=== PATIENT | male | born 1950 | race Caucasian/White ===

== ENCOUNTER 2019-04-11 14:13 | Inpatient (IN) | payer MEDICARE ==
[2019-04-11] MEDS ORDERED: Heparin for STEMI(*) 5,000 UNITS/ML 1 ML VIAL IV ONE ×2 (14:20)
[2019-04-11] MEDS ORDERED: Morphine INJ* 10 MG/ML 1 ML CARPUJECT IV ONE (14:20)
[2019-04-11] MEDS ORDERED: Aspirin 81 mg CHEW TAB* 81 MG TAB.CHEW ONE (14:20)
[2019-04-11] MEDS ORDERED: Ticagrelor* 90 MG TAB PO ONE ×2 (14:20→14:21)
[2019-04-11] MEDS ORDERED: Nitroglycerin TAB 0.4 MG* 0.4 MG TAB ONE (14:20)
[2019-04-11] MEDS ORDERED: Aspirin 81 mg CHEW TAB* 81 MG TAB.CHEW PO ONE (14:20)
[2019-04-11] MEDS ORDERED: Morphine 4 MG/ML VIAL (1 ml) 4 MG/ML VIAL ONE (14:20)
[2019-04-11] MEDS ORDERED: Ondansetron INJ* 2 MG/ML VIAL ONE (14:20)
[2019-04-11] MEDS ORDERED: nitroGLYCERIN DRIP* 0 MCG/0 ML BTL ONE ×2 (14:21→14:23)
[2019-04-11] MEDS ORDERED: Heparin 2 UNITS/ML IVPREMIX* 3,000 ML IV ONE (14:23)
[2019-04-11] MEDS ORDERED: fentaNYL* 50 MCG/ML 2 ML VIAL (100 MCG VIAL) ONE (14:23)
[2019-04-11] MEDS ORDERED: VERAPAMIL 2.5 MG/ML 2 ML VIAL ** 5 mg/2 ml ONE (14:23)
[2019-04-11] MEDS ORDERED: Midazolam* 1 MG/ML 5 ML VIAL (5 MG) ONE (14:23)
[2019-04-11] MEDS ORDERED: Iohexol 350 (CONTRAST) 200 ML MDV IV ONE ×4 (14:23→15:39)
[2019-04-11] MEDS ORDERED: Lidocaine 1% INJ* 10 MG/ML 30 ML SDV ONE (14:23)
[2019-04-11] MEDS ORDERED: Heparin(*) 1000 UNIT/ML 10 ML VIAL CATH LAB IV ONE (14:23)
--- NOTE | 2019-04-11 14:29 | ED ---
HPI Chest Pain - HPI Summary HPI Summary: Patient is a 68 y/o M presenting to [facility] via private vehicle for complaints of chest pain. Patient was brought to immediately for EKG, which was reviewed by Dr. Duron. STEMI was noted, provider to immediately to evaluate patient. STEMI called on overhead at 1418. Patient states that while he was exercising at [employer] today, 04/11/19, a couple of hours ago, and had onset of chest pain. CP is characterized as a tightness and is noted to be "not severe" by the patient. He notes that he has been having episodes of intermittent CP over the past few weeks, but this episode of CP was more persistent. He endorses Hx of HTN and AV block. He is on Lisinopril 5 mg. NKDA noted. Patient states that he is a non-smoker. Home medications and allergies are reviewed. - History of Current Complaint Chief Complaint: EDChestPainROMI Time Seen by Provider: 04/11/19 14:15 Hx Obtained From: Patient Onset/Duration: Started Hours Ago, Still Present Timing: Lasting Hours Current Severity: Mild Pain Intensity: 3 Pain Scale Used: 0-10 Numeric Character: Tightness Associated Signs and Symptoms: Positive: Chest Pain - Allergy/Home Medications Allergies/Adverse Reactions: Allergies Allergy/AdvReac Type Severity Reaction Status Date / Time No Known Allergies Allergy Verified 04/11/19 14:21 Home Medications: Home Medications Metronidazole (TOPICAL)(NF) [Metrocream (NF)] 0.75 % TOPICAL BEDTIME PRN [History Confirmed 04/11/19] Sulfacetamide Sodium [Sodium Sulfacetamide] 10 % TOPICAL QAM PRN 04/11/19 [ History Confirmed 04/11/19] PMH/Surg Hx/FS Hx/Imm Hx Cardiovascular History: Reports: Hx Hypertension, Other Cardiovascular Problems/ Disorders - AV block Sensory History: Denies: Hx Legally Blind, Hx Deafness Opthamlomology History: Denies: Hx Legally Blind EENT History: Denies: Hx Deafness Infectious Disease History: No Infectious Disease History: Denies: Traveled Outside the [place] in Last 30 Days - Family History Known Family History: Negative: Seizure Disorder - Social History Alcohol Use: Rare Substance Use Type: Reports: None Smoking Status (MU): Never Smoked Tobacco Review of Systems Negative: Fever - on vitals, temp is 97.4 F Positive: Chest Pain All Other Systems Reviewed And Are Negative: Yes Physical Exam - Summary Physical Exam Summary: Appearance: Well-appearing, Well-nourished, lying in bed comfortably Skin: Warm, dry, no obvious rash Eyes: sclera anicteric, no conjunctival pallor ENT: mucous membranes moist, pharynx appears normal Neck: Supple, nontender Respiratory: Clear to auscultation, no signs of respiratory distress Cardiovascular: Normal S1, S2. No murmurs. Normal distal pulses in tibial and radial bilaterally. Abdomen: Soft, nontender, normal active bowel sounds present Musculoskeletal: Normal, Strength/ROM Intact Neurological: A&Ox3, awake and alert, mentation is normal, speech is fluent and appropriate Psychiatric: affect is normal, does not appear anxious or depressed Triage Information Reviewed: Yes Vital Signs On Initial Exam: Initial Vitals Temp Pulse Resp BP Pulse Ox 97.4 F 72 16 169/72 98 04/11/19 14:19 04/11/19 14:19 04/11/19 14:19 04/11/19 14:19 04/11/19 14:19 Vital Signs Reviewed: Yes Procedures - Sedation Patient Received Moderate/Deep Sedation with Procedure: No Diagnostics - Vital Signs Vital Signs Temp Pulse Resp BP Pulse Ox 04/11/19 14:19 97.4 F 72 16 169/72 98 - Laboratory Result Diagrams: 04/12/19 05:45 04/14/19 08:10 Lab Statement: Any lab studies that have been ordered have been reviewed, and results considered in the medical decision making process. - Radiology CXR Radiology Interpretation Completed By: Radiologist Summary of Radiographic Findings: IMPRESSION: NO ACTIVE CARDIOPULMONARY DISEASE. THIS REPORT WAS REVIEWED BY ED PHYSICIAN. - EKG 1418 Cardiac Rate: NL - rate of 70 BPM EKG Rhythm: Sinus Rhythm Summary of EKG Findings: EKG showed rate of 70 BPM, acute ST elevation with reciprocal changes. EKG is significant for STEMI. EKG was reviewed and interpreted by ED physician. Chest Pain Course/Dx - Course Course Of Treatment: Patient is a 68 y/o M presenting to [facility] via private vehicle for complaints of chest pain. Patient was brought to immediately for EKG, which was reviewed by Dr. Duron. STEMI was noted, provider to immediately to evaluate patient. STEMI called on overhead at 1418. Patient states that while he was exercising at [employer] today, 04/11/19, a couple of hours ago, and had onset of chest pain. CP is characterized as a tightness and is noted to be "not severe" by the patient. He notes that he has been having episodes of intermittent CP over the past few weeks, but this episode of CP was more persistent. He endorses Hx of HTN and AV block. He is on Lisinopril 5 mg. NKDA noted. Patient states that he is a non-smoker. EKG showed rate of 70 BPM, acute ST elevation with reciprocal changes. EKG is significant for STEMI. STEMI protocol initiated. Dr. Altamirano in ED at 1421, patient's case discussed. Patient to be taken to label paster immediately. Patient received Brillinta 180 mg PO, ASA 324 mg PO, and Heparin 4000 units IV. Bloodwork was obtained. Trop was 0.01 and CK-MG 3.1. LDL cholesterol was 167. Abnormal values include 108 glucose , 1.24 creatinine, and MCH 33. CXR IMPRESSION: NO ACTIVE CARDIOPULMONARY DISEASE. - Diagnoses Provider Diagnoses: STEMI (ST elevation myocardial infarction) - Provider Notifications Discussed Care Of Patient With: Kalen Altamirano Time Discussed With Above Provider: 14:21 Instructed by Provider To: Other - Dr. Altamirano in ED at 1421, patient's case discussed. Patient to be taken to label paster immediately. - Critical Care Time Critical Care Time: 30-74 min - 15 minutes Discharge ED - Sign-Out/Discharge Documenting (check all that apply): Patient Departure - admit - Discharge Plan Condition: Stable Disposition: ADMITTED TO [facility] - Billing Disposition and Condition Condition: STABLE Disposition: Admitted to [facility] - Attestation Statements Document Initiated by Kolton: Yes Documenting Scribe: SANA HINDS Provider For Whom Kolton is Documenting (Include Credential): MEGHANN DURON MD Scribe Attestation: SANA Hwang, scribed for MEGHANN DURON MD on 04/17/19 at 0041. Scribe Documentation Reviewed: Yes Provider Attestation: The documentation as recorded by the SANA castillo accurately reflects the service I personally performed and the decisions made by me, MEGHANN DURON MD Status of Scribe Document: Viewed
[2019-04-11] MEDS ORDERED: nitroGLYCERIN DRIP* 25,000 MCG/250 ML BTL ONE (14:39)
[2019-04-11] MEDS ORDERED: Bivalirudin(*) 250 MG VIAL ONE (14:51)
[2019-04-11 14:54] LABS: Albumin 4.9 g/dL (3.2-5.2); Calcium 9.8 mg/dL (8.6-10.3); Potassium 3.7 mmol/L (3.5-5.0); Total Bilirubin 0.7 mg/dL (0.2-1.0)
[2019-04-11 15:00] LABS: Albumin/Globulin Ratio 1.7 (1-3); BUN/Creatinine Ratio 17.7 (8-20); EGFR African American 70.6 (>60); EGFR Non-African American 58.3 (>60); Globulin 2.9 g/dL (2-4); Total Protein 7.8 g/dL (6.4-8.9)
[2019-04-11 15:01] LABS: Troponin I 0.01 ng/mL (<0.03)
[2019-04-11 15:02] LABS: Activated Partial Thrombo Time 28.2 seconds (26.0-38.0); INR 1.08 (0.82-1.09)
[2019-04-11 15:03] LABS: CKMB ng/mL 3.1 ng/mL (0.6-6.3)
[2019-04-11 15:10] LABS: ABS Basophils 0.1 10^3/ul (0-0.2); ABS Eosinophils 0.1 10^3/ul (0-0.6); ABS Lymphocytes 1.9 10^3/ul (1.0-4.8); ABS Monocytes 0.6 10^3/ul (0-0.8); ABS Neutrophils 7.3 10^3/ul (1.5-7.7); Hematocrit 43 % (42-52); Hemoglobin 15.2 g/dL (14.0-18.0); Lymphocyte % 18.9 %; Mean Corpuscular HGB Conc 35 g/dL (31-36); Mean Corpuscular Hemoglobin 33 pg (27-31); Mean Corpuscular Volume 93 fL (80-94); Mean Platelet Volume 8.7 fL (7.4-10.4); Nucleated Red Blood Cells % 0.1; Platelet Count 182 10^3/uL (150-450); Red Blood Count 4.67 10^6 /uL (4.18-5.48); Red Cell Distribution Width 13 % (10-15)
[2019-04-11] MEDS ORDERED: Docusate CAP* 100 MG PO PRN (16:02)
[2019-04-11] MEDS ORDERED: Zolpidem TAB* 5 MG PO PRN (16:02)
[2019-04-11] MEDS ORDERED: Acetaminophen TAB* 325 MG PO PRN (16:02)
[2019-04-11] MEDS ORDERED: Ondansetron INJ* 2 MG/ML VIAL IV PRN (16:02)
[2019-04-11] MEDS ORDERED: Nitroglycerin TAB 0.4 MG* 0.4 MG TAB SL PRN (16:02)
[2019-04-11] MEDS ORDERED: NS 0.9% 1000 ML** 1,000 ML IV SCH (16:15)
[2019-04-11] MEDS: Atorvastatin* 80 MG TAB PO SCH (16:34)
[2019-04-11] MEDS ORDERED: Metoprolol Tartrate TAB* 25 MG PO SCH ×2 (17:00→23:00)
[2019-04-11] MEDS ORDERED: Lisinopril TAB* 10 MG PO ONE (17:14)
[2019-04-11] MEDS: Metoprolol Tartrate TAB* 25 MG PO SCH (17:20)
--- NOTE | 2019-04-11 18:23 | HP ---
CC: Dr. Kiah Regan * ADMISSION HISTORY AND PHYSICAL: DATE OF ADMISSION: 04/11/19 CHIEF COMPLAINT: The patient presents with chest discomfort with an EKG suggesting the presence of an acute ST-segment elevation anterior wall myocardial infarction with STEMI alert called. HISTORY OF PRESENT ILLNESS: The patient is a 68-year-old gentleman who states that he has noted having had symptoms of chest discomfort somewhat exertionally related over the past 2 weeks or so. He states that it would generally last 10 to 15 minutes. It was not extremely severe, but could be provoked. Today, he had been exercising at [employer] a couple of hours prior to admission and he developed chest tightness that was not significantly severe. It was similar to his other episodes, but was not going away. He eventually decided to seek medical attention for this. He drove himself to the emergency room and in the emergency room EKG suggested the presence of acute ST-segment elevation anterior wall myocardial infarction. STEMI alert was called. When I saw him, he was still having active symptoms. Risks and benefits of cardiac catheterization were reviewed with the patient. He had received 5000 units of heparin intravenously, 180 mg of Brilinta that he chewed and swallowed, and full -dose aspirin that he chewed and swallowed. The decision was made to proceed to the cardiovascular laboratory. PAST MEDICAL HISTORY: Includes a history of hypertension for which he had been on lisinopril and apparently it was not working well. He has intermittent bouts of hyperlipidemia that he seems to relate is secondary to the way he drinks his coffee initially doing a [place]otho press and then when he was using a drip coffee machine, but did not use paper filters, which apparently he had investigated and felt were the cause of the increase in the cholesterol as it seemed to rebound increase when he went back to drip coffee without filters. He denies any smoking history. He has a family history significant for father who had a myocardial infarction in his 50s and he does not have diabetes. PAST SURGICAL HISTORY: Includes appendectomy and a tonsillectomy as a child. More recent surgery was a right hip replacement. SOCIAL HISTORY: He does not smoke. He lives with his . He is a retired radiologist. REVIEW OF SYSTEMS: (pertinent to proceeding emergently to laborer high density press) - No history of stroke , TIA, significant bleeding problems, significant kidney disease , or known contrast allergy. PHYSICAL EXAMINATION GENERAL: In the emergency room revealed a well-developed gentleman, in no acute distress. VITAL SIGNS: Reveal blood pressure 169/72 with a pulse of 72. HEENT: Conjunctivae pink. Sclerae clear. NECK: Supple. There was no increased JVP. Carotid with good upstroke and volume without bruits. LUNGS: Revealed no accessory muscle usage. There was good excursion. There were no active rales, rhonchi, or wheezes. HEART: Revealed no visible heaves. No palpable heaves or thrills. No significant systolic or diastolic murmurs. ABDOMEN: Soft, nontender. EXTREMITIES: Without edema. Right and left femoral pulses were present without bruits. Right radial artery had a good pulse. MUSCULOSKELETAL: The patient moves all extremities appropriately. NEURO: The patient is alert, oriented with normal mentation. PSYCHOLOGICAL: The patient with normal affect. DIAGNOSTIC STUDIES/LAB DATA: Laboratory results - pending at the time of the emergency room assessment. Electrocardiogram in the emergency room revealed normal sinus rhythm, heart rate 70, FL interval is 0.20, QRS is 0.08, QT is 0.38, axis is -[address]- segment depression seen in II, III, aVF with ST elevation noted in V1, V2 and V3. Suggestive findings of an acute ST-segment anteroseptal myocardial infarction were noted. There was mild ST-segment elevation also seen in aVL and aVR. OVERALL ASSESSMENT: The patient now presents in the throes of an acute ST- segment elevation myocardial infarction. He has appropriately gotten heparin, Brilinta, and aspirin therapy. Risks and benefits were explained. He understood them and wished to proceed to the laborer high density press for emergent percutaneous coronary intervention. Further management will be made pending results of the catheterization. [id number]/[facility] #: [id number] ROSHNI
[2019-04-11] MEDS: Ticagrelor* 90 MG TAB PO SCH (20:22)
[2019-04-11 20:59] LABS: Creatine Kinase 397 U/L (10-223)
[2019-04-11 21:04] LABS: CKMB ng/mL 40.1 ng/mL (0.6-6.3); Troponin I 6.18 ng/mL (<0.03)
[2019-04-11 22:44] LABS: Calcium 9.4 mg/dL (8.6-10.3); Magnesium 2.1 mg/dL (1.9-2.7); Potassium 4.1 mmol/L (3.5-5.0)
[2019-04-11 22:49] LABS: BUN/Creatinine Ratio 17.1 (8-20); EGFR African American 75.5 (>60); EGFR Non-African American 62.4 (>60)
[2019-04-12 03:05] LABS: Creatine Kinase 533 U/L (10-223)
[2019-04-12 03:10] LABS: Troponin I 12.95 ng/mL (<0.03)
[2019-04-12 03:11] LABS: CKMB ng/mL 55.6 ng/mL (0.6-6.3)
[2019-04-12 06:16] LABS: ABS Basophils 0.1 10^3/ul (0-0.2); ABS Eosinophils 0.2 10^3/ul (0-0.6); ABS Lymphocytes 1.7 10^3/ul (1.0-4.8); ABS Monocytes 0.6 10^3/ul (0-0.8); ABS Neutrophils 4.7 10^3/ul (1.5-7.7); Eosinophil % 3.1 %; Hematocrit 38 % (42-52); Hemoglobin 13.6 g/dL (14.0-18.0); Lymphocyte % 23.8 %; Mean Corpuscular HGB Conc 35 g/dL (31-36); Mean Corpuscular Hemoglobin 33 pg (27-31); Mean Corpuscular Volume 93 fL (80-94); Mean Platelet Volume 8.7 fL (7.4-10.4); Nucleated Red Blood Cells % 0.1; Platelet Count 166 10^3/uL (150-450); Red Blood Count 4.15 10^6 /uL (4.18-5.48); Red Cell Distribution Width 13 % (10-15); White Blood Count 7.3 10^3/uL (3.5-10.8)
[2019-04-12 06:34] LABS: BUN/Creatinine Ratio 19.6 (8-20); Calcium 8.7 mg/dL (8.6-10.3); EGFR African American 83.7 (>60); EGFR Non-African American 69.1 (>60); HDL Cholesterol 42.6 mg/dL; Potassium 3.9 mmol/L (3.5-5.0)
[2019-04-12] MEDS ORDERED: Perflutren Lipid Microsphere* 3 ML VIAL ONE (08:04)
[2019-04-12] MEDS ORDERED: Lisinopril TAB* 10 MG PO SCH (09:00)
[2019-04-12 09:18] LABS: Creatine Kinase 494 U/L (10-223)
[2019-04-12 09:25] LABS: CKMB ng/mL 50.7 ng/mL (0.6-6.3)
[2019-04-12 09:26] LABS: Troponin I 6.69 ng/mL (<0.03)
[2019-04-12] MEDS: Ticagrelor* 90 MG TAB PO SCH ×2 (09:34→20:14)
--- NOTE | 2019-04-12 10:39 | ECHO ---
*[facility]* [place] [address] Fax #: [phone] Transthoracic Echocardiogram Patient: David Pearl : 1950 Study Date: 04/12/2019 Age: 68 Gender: M HR: 58 bpm Height: 70 in /177.8 cm BSA: 2.02 m^2 Weight: 180 lb /81.8 kg BMI: 25.9 kg/m^2 *Mapping Analyst: * Tresa Frost RDCS RN *Referring Physician: * Kalen Altamirano MD *Reading Physician: * Surya Chirinos MD Indications: Myocardial Infarction (new). S/P PCI for Anterior wall STEMI. History: Risk factors: Hypertension. Conclusions Summary: - Left ventricle: The cavity size is normal. Wall thickness is mildly increased. Systolic function is at the lower limits of normal. The estimated ejection fraction is 50-55%. Hypokinesis of the mid-apicalanteroseptal myocardium. Hypokinesis of the mid-apicalanterior myocardium. - Mitral valve: There is trace regurgitation. - Aortic valve: There is mild regurgitation. - Tricuspid valve: There is trace regurgitation. - Pulmonary arteries: Systolic pressure is within the normal range, estimated to be 19 mm Hg. - No previous echocardiogram available. Study data: Transthoracic echocardiogram. Procedure: Transthoracic echocardiography was performed. Image quality was fair. Intravenous Definity 3 ml was administered to enhance imaging. Complete 2D, spectral Doppler, and color flow Doppler. Location: ICU Patient status: Inpatient. Patient room number: ICU 7. Rhythm: Bradycardia. PVCs. Findings Left ventricle: The cavity size is normal. Wall thickness is mildly increased. Systolic function is at the lower limits of normal. The estimated ejection fraction is 50-55%. Regional wall motion abnormalities: Hypokinesis of the mid-apicalanteroseptal myocardium. Hypokinesis of the mid-apicalanterior myocardium. There is no consistent Doppler evidence of clinically significant diastolic dysfunction. Right ventricle: The cavity size is normal. Systolic function is normal. Left atrium: The atrium is normal in size. Right atrium: The atrium is normal in size. Mitral valve: The leaflets are mildly thickened. There is no evidence of stenosis. There is trace regurgitation. Aortic valve: The valve is trileaflet. The leaflets are mildly thickened. There is no evidence of stenosis. There is mild regurgitation. Tricuspid valve: The valve is structurally normal. There is no evidence of stenosis. There is trace regurgitation. Pulmonic valve: The valve is structurally normal. There is no evidence of stenosis. There is trace regurgitation. Aorta: Ascending aorta: The ascending aorta is not dilated. Aortic arch: The aortic arch is not dilated. The aortic root appears normal. Pericardium: There is no pericardial effusion. Pulmonary arteries: The main pulmonary artery is normal-sized. Systolic pressure is within the normal range, estimated to be 19 mm Hg. Systemic veins: Inferior vena cava: The vessel is normal in size. There is (>= 50%) respiratory change in the IVC dimension. Measurements Left ventricle Value Ref Aortic valve Value Ref HUMBERTO, LAX 4.3 cm 4.2 - 5.8 Peak v, S 1.4 m/sec --------- ESD, LAX 3.1 cm 2.5 - 4.0 Mean grad, S 5.0 mm Hg --------- FS, LAX 28 % 25 - 43 Peak grad, S 7.0 mm Hg --------- PW, ED, LAX (H) 1.1 cm 0.6 - 1.0 AR PHT 585 ms --------- E', lat senait, TDI (L) 8.5 cm/sec >=10.0 E/e', lat senait, TDI 10 --------- Mitral valve Value Ref E', med senait, TDI (L) 6.5 cm/sec >=7.0 Peak E 0.86 m/sec ---- ----- E/e', med senait, TDI 13 --------- Peak A 0.83 m/sec ------- -- E', avg, TDI 7.5 cm/sec --------- Decel time 211 ms ------- -- E/e', avg, TDI 11 <=14 Peak grad, D 3.0 mm Hg ---- ----- Peak E/A ratio 1.04 --------- LVOT Value Ref Peak castro, S 1 m/sec --------- Pulmonic valve Value Ref VTI, S 22.1 cm --------- Peak v, S 0.83 m/sec --------- Peak grad, S 4 mm Hg --------- Mean grad, S 2 mm Hg --------- Tricuspid valve Value Ref TR peak v 2 m/sec <=2.8 Right ventricle Value Ref Peak RV-RA grad, S 16 mm Hg --------- HUMBERTO minor ax, A4C mid 2.8 cm 1.9 - 3.5 Pressure, S 19 mm Hg --------- Aortic root Value Ref Root diam 3.4 cm <4.2 Left atrium Value Ref LA ID 3.0 cm --------- Ascending aorta Value Ref ML dim, A4C 3.8 cm --------- AAo diam 2.9 cm 2.2 - 3.8 SI dim, A4C 4.4 cm --------- Vol/bsa, ES, 1-p A4C 18 ml/m^2 12 - 37 Aortic arch Value Ref Arch diam 2.2 cm --------- Right atrium Value Ref SI dim, ES, A4C 4.8 cm 3.4 - 5.3 Pulmonary artery Value Ref SI dim/bsa, ES, A4C 2.4 cm/m^2 1.8 - 3.0 Pressure, S 19.0 mm Hg --------- Estimated RAP 3 mm Hg --------- Inferior vena cava Value Ref Diam 1.1 cm --------- Legend: (L) and (H) ariella values outside specified reference range. Prepared and electronically signed by Surya Chirinos MD 04/12/2019 10:39
[2019-04-12] MEDS ORDERED: Metoprolol Succinate XL TAB* 25 MG PO SCH ×2 (11:00→12:00)
--- NOTE | 2019-04-12 11:08 | CATH ---
CC: Dr. Kiah Regan * CARDIAC CATHETERIZATION AND INTERVENTIONAL REPORT: DATE OF PROCEDURE: 04/11/19 - ROOM #ICU-07 INDICATION FOR THE PROCEDURE: The patient presents with acute ST-segment elevation anterior wall myocardial infarction. PROCEDURE: Coronary arteriography, balloon angioplasty and placement of a 2.5 x 15 mm long Orsiro drug-eluting stent post-dilated to 2.65 to 2.7 mm in proximal left anterior descending artery. CONSENT: The patient was interviewed and examined in the emergency room where the risk and benefits were explained, he understood and wished to proceed. PRECARDIAC CATHETERIZATION LABORATORY RESULTS: None available at the beginning of the procedure. During the case, laboratory results came back - hemoglobin and hematocrit 15.2 and 43, platelet count 182,000, BUN and creatinine 22 and 1.24. Sodium 135, potassium 3.7, chloride 101, bicarb 24. Troponin was 0.01. APPROACH: The right radial artery was assessed by ultrasound and found to be acceptable and as such this was the approach taken. EQUIPMENT UTILIZED: 1. Right radial artery sheath was a 6-Azerbaijani Glidesheath Slender. 2. Diagnostic coronary catheters included a TIG-4 curved 5-Azerbaijani catheter. 3. Guide catheter utilized was a 6-Azerbaijani VL3.5 curve left coronary guide catheter. 4. Interventional wire included a 190 length All Star guidewire. 5. Thrombectomy catheter utilized was a Pronto V4 extraction catheter. 6. The balloon angioplasty catheters included a 2.0 x 15 mm long NC Emerge balloon as well as a 2.8 mm long Emerge balloon, a 2.5 x 8 mm long Emerge balloon, a 2.5 x 8 mm long NC Emerge balloon. 7. Closure device utilized was a regular length Vasc Band. 8. Stent utilized was a 2.5 x 15 mm long Orsiro drug-eluting stent. MEDICATIONS GIVEN: Included radial artery cocktail of 300 mcg of nitroglycerin and 3 mg of verapamil. Of note, the patient had already received heparin in the emergency room. Lidocaine 1% was utilized and 0.5 mg of Versed was given. DESCRIPTION OF PROCEDURE: The patient was brought to the cardiovascular laboratory where a formal timeout was performed. Under ultrasound guidance, the right radial artery was cannulated and the sheath was placed. Coronary arteriography was performed. Guiding views were obtained and an ACT was drawn. The ACT was found to be in a slightly low range and additional heparin therapy was given. Guiding views were obtained and All Star wire was advanced down the left anterior descending artery through the total occlusion. Attempts were made at manual aspiration utilizing the extraction catheter, but could not pass the lesion. Balloon angioplasty was then performed of the lesion. Following this, the Synergy drug- eluting was advanced and found to be slightly long, and as such, a 2.5 x 15 mm log Orsiro drug-eluting stent was advanced and deployed. Following the deployment of the Orsiro stent, attempts were made to deliver 2.5 x 8 mm long NC Emerge balloon to do post-deployment dilatation as there was still residual narrowing of the stent in the distal portion. Multiple attempts were made and this was unsuccessful. Dilatation of the primary portion of the stent was performed. Following this, a 2.0 x 8 mm long balloon was able to be advanced and expanded in the distal portion. Following that, a 2.5 x 8 mm long was able to be advanced in the distal portion and expanded to high pressures. The artery was then assessed for results following this. Following this, the guidewire was removed and sheath was removed and hemostasis was obtained with Vasc Band. The reverse Barbeau was a B. The total contrast used was 200 cc of Omnipaque dye. The radiation exposure included 19.7 minutes of fluoro time. The air kerma radiation was 4162 mGy. The DAP radiation was 20,861 microgray/m2. RESULTS: CORONARY ARTERIOGRAPHY: A. Left coronary artery. 1. Left main: There was minimal tapering of the distal left main with a 10% narrowing noted. 2. Left anterior descending artery. The left anterior descending artery was found to be totally occluded a short distance after its origin. 3. Circumflex artery: The circumflex artery was a non-dominant vessel supplying a large high first obtuse marginal branch/trifurcation marginal branch which trifurcated in nature supplying blood supply to the upper and mid posterior wall. Following this, was a second and bifurcating third obtuse marginal branch. There was mild narrowing of 35% seen after the second obtuse marginal branch before the last low lying obtuse marginal branch in the mid portion of the circumflex. The ostium of the high first obtuse marginal branch had a 25% narrowing. There appeared to be minimal collateralization seen to the left anterior descending artery system through the trifurcation marginal branch distally. After opening and successfully stenting the left anterior descending artery, it was found to be in general small-caliber system supplying multiple diagonal branches. Of note, the artery traversed toward the apical region, but not well to the apical region. B. Right coronary artery - a dominant vessel supplying multiple acute marginal branches as well as a very long dominant posterior descending artery which extended to the apical region and onto the distal anterior wall, the vessel then continued to supply posterior left ventricular branch. There was mild proximal luminal irregularities noted with mild to moderate 35% to 40% proximal right coronary artery narrowing noted. There was mild mid narrowing of 25% to 30% seen. The PDA supplied collateralization to what appeared to be the left coronary artery system faintly through septal perforators and through the distal PDA. INTERVENTION INTO PROXIMAL LEFT ANTERIOR DESCENDING ARTERY: Successful balloon angioplasty and placement of 2.5 x 15 mm long Orsiro drug- eluting stent post- dilated to high pressures to obtain 2.65 to 2.7 mm with KENISHA -3 flow. No dissections seen and 0% residual stenosis. Of note, the LAD system in general appeared to be small in caliber as mentioned earlier supplying a mid diagonal branch which trifurcated with continuation of the LAD extending toward the apical region. The vessel became clearly small in caliber toward the distal portion of the vessel. OVERALL ASSESSMENT: Successful recannulization of a totally occluded left anterior descending artery with balloon angioplasty and placement of a 2.5 x 15 mm long Orsiro drug- eluting stent post-dilated to 2.6 x 2.7 mm. Mild disease present elsewhere. Medical management will be pursued with aggressive dual antiplatelet therapy, continuation of JOSE inhibitor, and most likely institution of beta-rosio therapy and high-dose statins will be pursued. Echocardiogram will be obtained in the morning for overall LV function. [id number]/[facility] #: [id number] [facility]ITAL[facility]
[2019-04-12] MEDS ORDERED: Lisinopril TAB* 5 MG PO ONE (17:30)
[2019-04-12] MEDS: Atorvastatin* 80 MG TAB PO SCH (17:39)
[2019-04-12] MEDS: Metoprolol Tartrate TAB* 25 MG PO SCH (23:29)
[2019-04-13] MEDS ORDERED: Aspirin 81 mg CHEW TAB* 81 MG TAB.CHEW ONE (07:35)
[2019-04-13] MEDS: Metoprolol Succinate XL TAB* 25 MG PO SCH (07:47)
[2019-04-13] MEDS: Ticagrelor* 90 MG TAB PO SCH ×2 (07:47→20:49)
[2019-04-13] MEDS: Aspirin 81 mg CHEW TAB* 81 MG TAB.CHEW PO SCH ×2 (07:48→07:49)
[2019-04-13] MEDS: Atorvastatin* 80 MG TAB PO SCH (17:26)
[2019-04-13] MEDS ORDERED: Lisinopril TAB* 5 MG PO SCH (18:00)
[2019-04-14 08:36] LABS: Anion Gap 8 mmol/L (2-11); BUN/Creatinine Ratio 17.3 (8-20); Blood Urea Nitrogen 19 mg/dL (6-24); CO2 Carbon Dioxide 24 mmol/L (22-32); Calcium 9.4 mg/dL (8.6-10.3); Chloride 105 mmol/L (101-111); Glucose 97 mg/dL (70-100); Magnesium 1.8 mg/dL (1.9-2.7); Potassium 4.1 mmol/L (3.5-5.0); Sodium 137 mmol/L (135-145)
[2019-04-14 08:40] LABS: Troponin I 1.95 ng/mL (<0.03)
[2019-04-14] MEDS: Aspirin 81 mg CHEW TAB* 81 MG TAB.CHEW PO SCH (09:37)
[2019-04-14] MEDS: Ticagrelor* 90 MG TAB PO SCH (09:37)
[2019-04-14] MEDS: Metoprolol Succinate XL TAB* 25 MG PO SCH (09:38)
[2019-04-14] MEDS ORDERED: Metoprolol Succinate XL TAB* 25 MG PO SCH (10:00)
[2019-04-14 13:16] VITALS: BP 119/71
--- NOTE | 2019-04-14 15:20 | DS ---
CC: Dr. Kiah Regan; Dr. Kalen Altamirano DISCHARGE SUMMARY: DATE OF ADMISSION: 04/11/19 DATE OF DISCHARGE: 04/14/19 FINAL DIAGNOSES: 1. Acute ST-segment elevation anterior wall myocardial infarction. 2. Stenotic coronary artery disease. 3. Essential hypertension. 4. Hyperlipidemia. MEDICATIONS AT THE TIME OF DISCHARGE: 1. Lisinopril 2.5 mg in the evening. 2. Metoprolol succinate 25 mg once a day. 3. Aspirin 81 mg once a day. 4. Atorvastatin 80 mg once a day in the evening. 5. Brilinta 90 mg twice a day. 6. P.r.n. nitroglycerin as needed. 7. Metronidazole and Sulfacetamide creams topically as at home. HISTORY OF PRESENT ILLNESS/HOSPITAL COURSE: The patient is a pleasant 68-year- old gentleman who had had angina pectoris over several weeks leading up to his presentation to the emergency room. He came to the emergency room for persistent chest discomfort which was not resolving. Please refer to the H and P for details. In the emergency room, he was identified by EKG as having an acute ST-segment anterior wall myocardial infarction with reciprocal changes inferiorly and a STEMI alert was called. He received aspirin and Brilinta therapy and heparin therapy and was brought to the cardiovascular laboratory. In the cardiovascular laboratory, intervention was performed to the very proximal LAD with balloon angioplasty and stent placement utilizing a 2.5 x 15 mm long Orsiro drug-eluting stent dilated to 2.65 to 2.7 mm. During the course of the hospitalization, his troponin peaked at 12.95. His EKG developed evolution of ST segment changes in the early precordial lead suggesting acute anteroseptal myocardial infarction. He underwent transthoracic echocardiography on 04/12/[address] Chirinos, who felt the patient had a systolic ejection fraction in the lower limits of normal recording an EF of 50% to 55% with hypokinesis of the mid apical anteroseptal wall with hypokinesis of the mid apical anterior wall. There was felt to be trace mitral regurgitation and mild aortic regurgitation and trace tricuspid regurgitation. Over the course of the hospitalization, he was placed on low dose beta-rosio and metoprolol tartrate initially 12.5 mg daily, advanced to metoprolol succinate 12.5 mg a day and eventually on the day of discharge 25 mg once a day. Lisinopril low dose 2.5 mg was given in the evening. He maintained dual- antiplatelet therapy with baby aspirin and Brilinta 90 mg twice a day. High dose statin therapy was instituted with atorvastatin 80 mg a day. He was eventually up and about. Of note, he had frequent PVCs noted with rare couplets. On walking briskly around the floor, he had no significant increase to the degree of ventricular ectopic activity noted. I personally had a conversation with Dr. Jg Sparks, interactive designer at [facility], regarding the patient and he recommended having the metoprolol increased from the 12.5 to 25 mg once a day. We will plan to get a Holter monitor at some point as an outpatient. Dr. Sparks did not seem compelled that the patient had significant malignant ventricular ectopic activity or represented a high risk post TN. Of note, remember the patient's overall LV function was recorded to be in a fairly normal range by the echocardiogram, although on reviewing it myself I honestly believe that ejection fraction was more like 45%. PHYSICAL EXAMINATION: On the day of discharge, vital signs revealed blood pressure in the 120/70s, pulse was in the 60s, respirations 16, O2 saturation 100% on room air. Neck was supple. No increased JVP. Carotid had no bruits. Conjunctivae are pink. Sclerae clear. Mouth revealed moist mucosa. Lungs revealed no accessory muscle usage. There was good excursion. There were no active rales, rhonchi, or wheezes. Heart revealed no visible heaves, no palpable heaves or thrills. No significant systolic or diastolic murmur. Abdomen was soft and nontender without organomegaly. The lower extremities had no edema. The right radial artery site was well healed with no hematoma, no bruits present, and there was good antegrade flow. DIAGNOSTIC STUDIES/LAB DATA: Laboratory results on the day of discharge included sodium 137, potassium 4.1, chloride 105, bicarb 24, BUN and creatinine of 19 and 1.1. He had a repeat troponin done that was 1.95. His magnesium was borderline low range of 1.8. DISCHARGE PLAN: Of note, the patient was given a cardiac education booklet in addition to stent card and he will have a followup appointment with my partner, Dr. Neff, next week. He will be planning an appointment with Dr. Regan as well, and also, he will be set up with a primary care high school home economics teacher in the near future. Consideration for a Holter monitor will be made to assess the degree of ventricular ectopic activity he has on this dose of beta-rosio with further management to be made through his new primary high school home economics teacher. Consideration could also be made toward referral to Dr. Jg bullard at [facility] for an opinion regarding ventricular ectopic activity if it is quite frequent. [id number]/[facility] #: [id number] [facility]ITAL[facility]
== END 2019-04-14 14:30 | disposition home or self-care (01) | DRG 247 ==
LOC: ED 14:13 → CHICATH 14:27 → ICU 16:02 → MEDTELE 04-12 20:40
PROVIDERS: ADMIT Internal Medicine Cardiovascular Disease; ATTEND Internal Medicine Cardiovascular Disease
PROC: 4A023N7 Measurement of Cardiac Sampling and Pressure, Left Heart, Percutaneous Approach (ICD-10-PCS; 2019-04-11)
PROC: B2111ZZ Fluoroscopy of Multiple Coronary Arteries using Low Osmolar Contrast (ICD-10-PCS; 2019-04-11)
PROC: 027034Z Dilation of Coronary Artery, One Artery with Drug-eluting Intraluminal Device, Percutaneous Approach (ICD-10-PCS; principal; 2019-04-11 14:45)
DX: I21.09 ST elevation (STEMI) myocardial infarction involving other coronary artery of anterior wall (principal); I10 Essential (primary) hypertension; E78.5 Hyperlipidemia, unspecified; I25.119 Atherosclerotic heart disease of native coronary artery with unspecified angina pectoris; I08.3 Combined rheumatic disorders of mitral, aortic and tricuspid valves; I44.0 Atrioventricular block, first degree; Z79.82 Long term (current) use of aspirin; Z79.02 Long term (current) use of antithrombotics/antiplatelets; Z79.899 Other long term (current) drug therapy
CPT/HCPCS: 36415; 71045; 80048; 80053; 80061; 82550; 82553; 83605; 83721; 83735; 83880; 84484; 85025; 85347; 85610; 85730; 87641; 93005; 93306; 99285; A9270-GY; C8929; J0583; J1644; J2250; J2270; J2405; J3010